=== PATIENT | female | born 1970 ===

== ENCOUNTER 2021-01-26 12:30 | Inpatient (IN) | payer OTHER ==
[~2021-01-26] VITALS: Ht 165.1 cm; Wt 86.2 kg
[2021-01-27] MEDS ORDERED: SYNTHROID125 MCG PO (08:59)
[2021-01-27] MEDS ORDERED: ATIVAN0.5 M1 PO (09:00)
[2021-01-27] MEDS ORDERED: WELLBUTRIN XL300 MG PO (09:00)
[2021-01-27] MEDS ORDERED: JANUVIA100 MG PO (09:00)
[2021-01-27] MEDS ORDERED: ZOCOR20 MG PO (09:01)
[2021-01-27] MEDS ORDERED: ATIVAN1 M1 PO (09:01)
[2021-01-27] MEDS ORDERED: RESTORIL30 M1 PO (09:02)
[2021-01-27] MEDS ORDERED: ADVAIR 100-501 EACH IH (09:03)
[2021-01-27] MEDS ORDERED: GABAPENTIN300 M2 PO (09:03)
[2021-01-30] MEDS ORDERED: MONTELUKAST SOD10 MG (08:21)
[2021-01-30] MEDS ORDERED: RISPERIDONE0.5 MG (08:21)
== END 2021-02-02 18:21 | disposition home or self-care (01) | DRG 331 ==
LOC: SURG 01-30 06:00 → O/R 01-30 06:00 → SURH 01-30 07:00 → EDBD 01-30 12:30 → SURG 01-30 13:06
PROVIDERS: ADMIT Colon & Rectal Surgery; ATTEND Colon & Rectal Surgery
PROC: 3E0F7SF Introduction of Other Gas into Respiratory Tract, Via Natural or Artificial Opening (ICD-10-PCS; 2021-01-30)
PROC: 0DTN4ZZ Resection of Sigmoid Colon, Percutaneous Endoscopic Approach (ICD-10-PCS; principal; 2021-01-30 07:00)
PROC: 0DTP4ZZ Resection of Rectum, Percutaneous Endoscopic Approach (ICD-10-PCS; principal; 2021-01-30 07:00)
DX: K57.32 Diverticulitis of large intestine without perforation or abscess without bleeding (principal); R15.9 Full incontinence of feces; R10.32 Left lower quadrant pain

== ENCOUNTER 2021-02-24 12:29 | Outpatient (CLI) | payer OTHER ==
[~2021-02-24 12:29] MED LIST: ADVAIR 100-501 EACH IH; ATIVAN0.5 M1 PO; ATIVAN1 M1 PO; GABAPENTIN300 M2 PO; JANUVIA100 MG PO; MONTELUKAST SOD10 MG; RESTORIL30 M1 PO; RISPERIDONE0.5 MG; SYNTHROID125 MCG PO; WELLBUTRIN XL300 MG PO; ZOCOR20 MG PO
== END 2021-02-24 12:37 | disposition home or self-care (01) ==
LOC: TOM 12:29
PROVIDERS: ATTEND Colon & Rectal Surgery
DX: K76.0 Fatty (change of) liver, not elsewhere classified (principal); R10.32 Left lower quadrant pain; K56.690 Other partial intestinal obstruction; K57.32 Diverticulitis of large intestine without perforation or abscess without bleeding

== ENCOUNTER 2021-03-05 14:45 | Emergency (ER) | payer OTHER ==
[~2021-03-05] VITALS: Ht 165.1 cm; Wt 86.2 kg
[2021-03-05] MEDS ORDERED: PERCOCET 5-3251 EACH PO (21:16)
== END 2021-03-05 21:28 | disposition home or self-care (01) ==
LOC: ER 14:45
DX: G89.18 Other acute postprocedural pain (principal); R10.84 Generalized abdominal pain; R07.89 Other chest pain; T81.89XA Other complications of procedures, not elsewhere classified, initial encounter; Z03.818 Encounter for observation for suspected exposure to other biological agents ruled out